=== PATIENT | female | born 1955 | race Caucasian/White ===

== ENCOUNTER 2018-05-17 05:44 | Emergency (ER) | payer OTHER ==
[~2018-05-17] VITALS: Ht 162.6 cm; Wt 86.2 kg
[2018-05-17 05:53] VITALS: BP 117/77
--- NOTE | 2018-05-17 06:12 | ED DYSPNEA/ASTHMA COMPLAINT ---
History of Present Illness General Chief Complaint: General Adult Stated Complaint: "COUGH,CRACKLING,WHEEZING,WHISTLING" Source: patient Exam Limitations: no limitations Vital Signs & Intake/Output Vital Signs & Intake/Output Vital Signs Date Time Temp Pulse Resp B/P B/P Pulse O2 O2 Flow FiO2 Mean Ox Delivery Rate 05/17 0558 97 Room Air 05/17 0553 98.8 74 20 117/77 96 Room Air Room Air Allergies Coded Allergies: No Known Allergies (05/17/18) Reconcile Medications Albuterol Sulfate (Ventolin Hfa) 90 MCG HFA.AER.AD 2 PUF INH Q4-6 PRN PRN cough/wheeze Amoxicillin/Potassium Clav (Augmentin 875-125 Tablet) 875 MG-125 MG TABLET 1 TAB PO BID bronchitis Benzonatate (Tessalon Perle) 100 MG CAPSULE 1 CAP PO TID PRN cough Prednisolone 15 MG/5 ML SOLUTION 5 ML PO QDAY bronchitis Triage Note: 63YO FEMALE TO TRIAGE W/CO COUGH AND WHEEZING X 1 WEEK. RA SAT = 95 Triage Nurses Notes Reviewed? yes Onset: Gradual Duration: day(s): Timing: recent history Severity: mild Activities at Onset: none Modifying Factors: Improves With: rest. Associated Symptoms: cough HPI: 63 yo woman presents with 6-7 days of cough, mild phelgm, "and I feel like there is whistling in my chest.... phlegm... coughing." She notes no fever, chills, chest pain, syncopal symptoms. She is otherwise well. Past History Travel History Traveled to [place] past 21 day No Medical History Any Pertinent Medical History? see below for history Cardiovascular: hypertension Surgical History Surgical History: none Psychosocial History What is your primary language Swazi Tobacco Use: Never used Family History Hx Contributory? No Review of Systems Review of Systems Constitutional: Reports: no symptoms. EENTM: Reports: no symptoms. Respiratory: Reports: no symptoms. Cardiovascular: Reports: no symptoms. GI: Reports: no symptoms. Genitourinary: Reports: no symptoms. Musculoskeletal: Reports: no symptoms. Skin: Reports: no symptoms. Neurological/Psychological: Reports: no symptoms. Hematologic/Endocrine: Reports: no symptoms. Immunologic/Allergic: Reports: no symptoms. All Other Systems: Reviewed and Negative Physical Exam Physical Exam General Appearance: well developed/nourished, no apparent distress, awake, comfortable Head: atraumatic, normal appearance Eyes: Bilateral: normal appearance. Ears, Nose, Throat: normal pharynx, normal ENT inspection Neck: normal inspection, supple, full range of motion Respiratory: minimal rhonchi, minimal end expiratory wheeze Cardiovascular: regular rate/rhythm Gastrointestinal: soft Extremities: normal inspection, normal range of motion, no edema Neurologic/Psych: no motor/sensory deficits, awake, alert, oriented x 3 Skin: intact, normal color, warm/dry Core Measures ACS in differential dx? No CVA/TIA Diagnosis No Sepsis Present: No Sepsis Focused Exam Completed? No Progress Differential Diagnosis: asthma, bronchitis, COPD Plan of Care: well appearing woman with minimal rhonchi/wheeze... given duration of symptoms and report of sputum, will treat with low dose steroids, abx, albuterol... close follow up advised. Initial ED EKG: none Departure Departure Disposition: HOME OR SELF CARE Condition: Stable Clinical Impression Primary Impression: Bronchitis Referrals: Pierre BOLAÑOS,Joan Cunha (PCP/Family) Departure Forms: Customer Survey General Discharge Information Prescriptions: Current Visit Scripts Amoxicillin/Potassium Clav (Augmentin 875-125 Tablet) 1 TAB PO BID #14 TAB Prednisolone 5 ML PO QDAY #15 ML Albuterol Sulfate (Ventolin Hfa) 2 PUF INH Q4-6 PRN PRN cough/wheeze #1 INHAL Benzonatate (Tessalon Perle) 1 CAP PO TID PRN cough #20 CAP Critical Care Note Critical Care Note Critical Care Time: non-applicable
[2018-05-17] MEDS ORDERED: TESSALON PERLE100 M1 PO (06:13)
[2018-05-17] MEDS ORDERED: AUGMENTIN 875-1 EACH PO (06:13)
[2018-05-17] MEDS ORDERED: PREDNISOLO15 MG/5 M4 PO (06:13)
[2018-05-17] MEDS ORDERED: VENTOLIN HFA18 GM INH (06:13)
== END 2018-05-17 06:23 ==
LOC: ERH 05:44
DX: J40 Bronchitis, not specified as acute or chronic (principal)
CPT/HCPCS: J3490